=== PATIENT | female | born 1960 | race Hispanic/Latino ===

== ENCOUNTER 2021-06-23 06:35 | Day surgery (SDC) | payer BC ==
[2021-06-23] VITALS (8 sets, daily range): BP systolic 99–126; BP diastolic 48–91
[~2021-06-23] VITALS: Ht 154.9 cm; Wt 60.3 kg
[~2021-06-23 06:35] MED LIST: 0.9%NACL 1000ML 1,000 ML IV ONE
[2021-06-23] MEDS ORDERED: PROPOFOL 10 MG/ML 20ML VIAL IV ONE (07:22)
[2021-06-23] MEDS ORDERED: LIDOCAINE HCL 1% 20 ML VIAL ONE (07:23)
== END 2021-06-23 08:35 | disposition home or self-care (01) ==
LOC: DAH 06:35
PROVIDERS: ATTEND Internal Medicine
DX: K22.2 Esophageal obstruction (principal); Z86.010 Personal history of colon polyps; Z79.899 Other long term (current) drug therapy
CPT/HCPCS: 43237; 43239; A4215 ×2; A4221; A4222; A4223; A4606; A4620; A4657; A4663; J2704; J7030